=== PATIENT | female | born 1940 ===

== ENCOUNTER 2022-10-01 07:45 | Inpatient (IN) | payer OTHER ==
[~2022-10-01] VITALS: Ht 121.9 cm; Wt 68.0 kg
[2022-10-01] MEDS ORDERED: NORVASC5 MG PO (09:32)
[2022-10-01] MEDS ORDERED: LIPITOR40 MG PO (09:33)
[2022-10-01] MEDS ORDERED: IRBESARTAN300 MG PO (09:34)
[2022-10-01] MEDS ORDERED: OMEPRAZOLE40 MG PO (09:34)
[2022-10-01] MEDS ORDERED: DOXAZOSIN MESYLA2 MG PO (09:34)
[2022-10-01] MEDS ORDERED: SYNTHROID112 MCG PO (09:35)
[2022-10-05] MEDS ORDERED: DICLOFENAC POTA50 MG (11:20)
[2022-10-07] MEDS ORDERED: OXYC1TAB9 PO (06:37)
[2022-10-07] MEDS ORDERED: BACTRIM DS TAB1 EACH PO (06:37)
[2022-10-07] MEDS ORDERED: INTEGRA PLUS C1 EACH PO (06:37)
[2022-10-07] MEDS ORDERED: XARELTO10 MG PO (06:37)
== END 2022-10-07 22:34 | disposition home or self-care (01) | DRG 470 ==
LOC: O/R 10-05 06:24 → SURG 10-05 06:24
PROVIDERS: ADMIT Orthopaedic Surgery Sports Medicine; ATTEND Orthopaedic Surgery Sports Medicine
PROC: 0SRD0J9 Replacement of Left Knee Joint with Synthetic Substitute, Cemented, Open Approach (ICD-10-PCS; principal; 2022-10-05 13:00)
DX: M17.12 Unilateral primary osteoarthritis, left knee (principal); I10 Essential (primary) hypertension; E03.8 Other specified hypothyroidism; Z20.822 Contact with and (suspected) exposure to COVID-19